=== PATIENT | male | born 1955 | race Two or more races ===

== ENCOUNTER 2023-06-06 16:55 | Inpatient (IN) | payer BC, MEDICARE ==
[~2023-06-06] VITALS: Ht 170.2 cm; Wt 96.0 kg
[2023-06-06] MEDS ORDERED: SODIUM CHLORIDE 0.9% 1,000 ML IV ONE ×2 (17:15→19:30)
[2023-06-06 17:53] LABS: Alanine Aminotransferase 45 U/L (7-40); Albumin 4.3 g/dL (3.2-4.8); Alkaline Phosphatase 143 U/L (46-116); Anion Gap 10 (5-15); Aspartate Aminotransferase 52 U/L (13-40); BUN/Creatinine Ratio 17.2 (10.0-20.0); Bilirubin, Total 0.5 mg/dL (0.2-1.0); Blood Alcohol < 3.0 mg/dL (<10); Blood Urea Nitrogen 51 mg/dL (9-23); Calcium 8.9 mg/dL (8.7-10.4); Carbon Dioxide 23 mmol/L (20-30); Chloride 107 mmol/L (98-107); Glucose 153 mg/dL (74-106); Potassium 4.6 mmol/L (3.5-5.1); Sodium 140 mmol/L (136-145); Total Protein 6.7 g/dL (5.7-8.2)
[2023-06-06 17:59] LABS: Basophils # (auto) 0.1 10 ^3/uL (0-0.2); Basophils % (auto) 0.7 % (0.0-2.0); Eosinophils # (auto) 0.2 10 ^3/uL (0-0.8); Eosinophils % (auto) 1.7 % (0.0-7.0); Hematocrit 47.2 % (41.0-53.0); Hemoglobin 15.5 g/dL (13.5-17.5); Lymphocytes # (auto) 0.9 10 ^3/uL (0.4-5.4); Lymphocytes % (auto) 7.3 % (10.0-50.0); Mean Corpuscular Hemoglobin 29.7 pg (28.0-32.0); Mean Corpuscular Hgb Conc. 32.8 g/dL (32.0-36.0); Mean Corpuscular Volume 90.6 fL (80.0-100.0); Monocytes # (auto) 0.6 10 ^3/uL (0-1.3); Monocytes % (auto) 5.2 % (0.0-12.0); Neutrophils # (auto) 10.3 10 ^3/uL (1.6-8.6); Neutrophils % (auto) 85.1 % (37.0-80.0); Red Blood Cells 5.21 10^6/uL (4.5-5.90); Red Cell Distribution Width 13.9 % (11.8-14.3); White Blood Cell 12.1 10^3/uL (4.4-10.8)
[2023-06-06 18:13] VITALS: PULSE 96; RESP 20; O2SAT 96
[2023-06-06 18:15] LABS: INR 1.04 (0.9-1.15); Partial Thromboplastin Time 27.2 SEC (24.5-34.5); Prothrombin Time 10.9 sec (9.3-11.8)
[2023-06-06 19:19] VITALS: PULSE 87; RESP 96; O2SAT 96
[2023-06-06] MEDS ORDERED: FUROSEMIDE 100 MG/10ML VIAL IV ONE (20:15)
[2023-06-06] MEDS ORDERED: HALOPERIDOL LACTATE 5 MG/ML INJ VIAL IV ONE (21:30)
[2023-06-06 23:50] LABS: Amphetamine Screen, Urine Neg (NEGATIVE); Barbiturate Scree,Urine Neg (NEGATIVE); Benzodiazephine Screen, Urine Neg (NEGATIVE); Cannabinoid Screen, Urine Neg (NEGATIVE); Cocaine Screen, Urine Neg (NEGATIVE); Opiate Scree,Urine Pos (NEGATIVE); Phencyclidine Screen, Urine Neg (NEGATIVE)
[2023-06-06 23:51] LABS: Urine Bacteria NONE SEEN /hpf (None Seen); Urine Blood Negative /uL (Negative); Urine Clarity Clear (Clear); Urine Color Yellow (Yellow); Urine Hyaline Cast MOD /lpf (0 - 2); Urine Protein, UAD TRACE (Negative); Urine Specific Gravity 1.026 (1.001-1.035); Urine WBC 3 /hpf (0 - 3)
[2023-06-07] MEDS ORDERED: NOREPINEPHRINE 8 MG/250ML KIT 250 ML IV SCH (01:15)
[2023-06-07] MEDS ORDERED: ONDANSETRON HCL 4 MG/2 ML VIAL IV PRN (02:30)
[2023-06-07] MEDS ORDERED: NITROGLYCERIN 0.4 MG SL TAB SL PRN (02:30)
[2023-06-07] MEDS ORDERED: MORPHINE SULFATE INJ 2 MG/ml SYRG IV PRN (02:30)
[2023-06-07] MEDS ORDERED: SOD CHL 0.45% 1,000 ML IV SCH (02:30)
[2023-06-07] MEDS ORDERED: ACETAMINOPHEN 325 MG TAB PO PRN (02:30)
[2023-06-07] MEDS ORDERED: DOCUSATE SOD 100 MG CAP PO PRN (02:30)
[2023-06-07] MEDS ORDERED: DEXTROSE (50%) 50ML SYRG IV PRN (03:00)
[2023-06-07] MEDS: SOD CHL 0.45% 1,000 ML IV SCH ×2 (03:10→16:07)
[2023-06-07 05:20] LABS: Basophils # (auto) 0.1 10 ^3/uL (0-0.2); Basophils % (auto) 0.7 % (0.0-2.0); Eosinophils # (auto) 0.5 10 ^3/uL (0-0.8); Eosinophils % (auto) 5.4 % (0.0-7.0); Hemoglobin 14.6 g/dL (13.5-17.5); Lymphocytes # (auto) 1.3 10 ^3/uL (0.4-5.4); Lymphocytes % (auto) 14.8 % (10.0-50.0); Mean Corpuscular Hemoglobin 30.1 pg (28.0-32.0); Mean Corpuscular Hgb Conc. 33.1 g/dL (32.0-36.0); Mean Corpuscular Volume 90.7 fL (80.0-100.0); Monocytes # (auto) 0.7 10 ^3/uL (0-1.3); Monocytes % (auto) 7.6 % (0.0-12.0); Neutrophils # (auto) 6.1 10 ^3/uL (1.6-8.6); Neutrophils % (auto) 71.5 % (37.0-80.0); Nucleated Red Blood Cells % 0.1 %; Red Blood Cells 4.85 10^6/uL (4.5-5.90); Red Cell Distribution Width 14.4 % (11.8-14.3); White Blood Cell 8.5 10^3/uL (4.4-10.8)
[2023-06-07 05:23] LABS: Chloride 111 mmol/L (98-107); Potassium 4.5 mmol/L (3.5-5.1); Sodium 141 mmol/L (136-145)
[2023-06-07 05:24] LABS: Anion Gap 5 (5-15); Carbon Dioxide 25 mmol/L (20-30)
[2023-06-07 05:25] LABS: Calcium 8.5 mg/dL (8.7-10.4)
[2023-06-07 05:29] LABS: BUN/Creatinine Ratio 27.5 (10.0-20.0); Glucose 137 mg/dL (74-106)
[2023-06-07 05:32] LABS: Blood Urea Nitrogen 38 mg/dL (9-23)
[2023-06-07] MEDS: ACCU-CHEK COMFORT CURVE STRIP VI SCH ×4 (05:48→23:26)
[2023-06-07] MEDS: InsuLIN REG 1unit/0.01ml Soln (100units/ml) SC SCH ×4 (05:48→23:30)
[2023-06-07 07:53] VITALS: O2SAT 93
[2023-06-07] MEDS: HEPARIN SODIUM (PORCINE) 5000 UNITS/ML 1ML VIAL SC SCH ×2 (09:46→21:54)
[2023-06-07] MEDS ORDERED: PANTOPRAZOLE 40 MG/10 ML VIAL INJ IV SCH (10:00)
[2023-06-07] MEDS ORDERED: PIPERACILLIN-TAZOB 3.375GM 100 ML IV SCH (12:45)
[2023-06-07] MEDS ORDERED: VANCOMYCIN 1GM/250ML 250 ML IV ONE (13:45)
[2023-06-07] MEDS ORDERED: VANCOMYCIN PER PHARMACY 0 MG IV SCH (13:45)
[2023-06-07] MEDS ORDERED: CEFTRIAXONE SODIUM 2 GM in D5W 5% 100 ML IV ONE (13:45)
[2023-06-07 16:32] LABS: Alanine Aminotransferase 39 U/L (7-40); Albumin 4.3 g/dL (3.2-4.8); Alkaline Phosphatase 117 U/L (46-116); Anion Gap 7 (5-15); Aspartate Aminotransferase 56 U/L (13-40); Bilirubin, Total 0.5 mg/dL (0.2-1.0); Carbon Dioxide 26 mmol/L (20-30); Chloride 107 mmol/L (98-107); Glucose 194 mg/dL (74-106); Sodium 140 mmol/L (136-145)
[2023-06-07 16:33] LABS: Acetaminophen < 2.0 UG/ML (10.0-20.0)
[2023-06-07 16:34] LABS: Salicylate < 3.0 mg/dL (2.8-20.0)
[2023-06-07 16:44] LABS: Blood Urea Nitrogen 24 mg/dL (9-23)
[2023-06-07 18:40] VITALS: PULSE 108; RESP 20; O2SAT 96
[2023-06-07 19:05] VITALS: PULSE 108; RESP 20; O2SAT 96
[2023-06-07 20:00] VITALS: PULSE 108; PULSE 109; RESP 20; O2SAT 96
[2023-06-07] MEDS ORDERED: AML5T PO (20:37)
[2023-06-07] MEDS ORDERED: TIZA4TAB9 PO (20:37)
[2023-06-07] MEDS ORDERED: HYDR-4798 PO (20:37)
[2023-06-07] MEDS ORDERED: ESCI10TA PO (20:37)
[2023-06-07] MEDS ORDERED: MORP30TA PO (20:37)
[2023-06-07] MEDS ORDERED: LISI20TA56 PO (20:37)
[2023-06-07] MEDS ORDERED: HYDR50TA69 PO (20:37)
[2023-06-07] MEDS ORDERED: SIMV40TA18 PO (20:37)
[2023-06-07] MEDS ORDERED: BACL20TA PO (20:37)
[2023-06-07] MEDS ORDERED: PREG25CA GT (20:37)
[2023-06-07 22:00] VITALS: BP 129/77; PULSE 103; RESP 20; TEMP 98.6; O2SAT 96
[2023-06-08] VITALS (7 sets, daily range): BP systolic 107–143; BP diastolic 66–82; PULSE 57–115; RESP 17–19; TEMP 97.3–98.2; O2SAT 92–96
[2023-06-08 04:08] LABS: Gastric Occult Blood Positive (Negative); Gastric Occult Blood pH 1
[2023-06-08] MEDS: ACCU-CHEK COMFORT CURVE STRIP VI SCH ×3 (05:29→18:00)
[2023-06-08] MEDS: SOD CHL 0.45% 1,000 ML IV SCH ×2 (05:31→18:45)
[2023-06-08] MEDS: InsuLIN REG 1unit/0.01ml Soln (100units/ml) SC SCH ×3 (05:34→18:00)
[2023-06-08 06:01] LABS: Basophils # (auto) 0 10 ^3/uL (0-0.2); Basophils % (auto) 0.1 % (0.0-2.0); Eosinophils # (auto) 0 10 ^3/uL (0-0.8); Eosinophils % (auto) 0.1 % (0.0-7.0); Hematocrit 44.6 % (41.0-53.0); Hemoglobin 14.7 g/dL (13.5-17.5); Lymphocytes # (auto) 1.4 10 ^3/uL (0.4-5.4); Lymphocytes % (auto) 15.4 % (10.0-50.0); Mean Corpuscular Hemoglobin 29.6 pg (28.0-32.0); Mean Corpuscular Volume 89.8 fL (80.0-100.0); Monocytes # (auto) 0.6 10 ^3/uL (0-1.3); Monocytes % (auto) 6.7 % (0.0-12.0); Neutrophils # (auto) 7.3 10 ^3/uL (1.6-8.6); Neutrophils % (auto) 77.7 % (37.0-80.0); Red Blood Cells 4.97 10^6/uL (4.5-5.90); White Blood Cell 9.4 10^3/uL (4.4-10.8)
[2023-06-08 06:15] LABS: Alanine Aminotransferase 35 U/L (7-40); Albumin 4.2 g/dL (3.2-4.8); Alkaline Phosphatase 107 U/L (46-116); Anion Gap 7 (5-15); Aspartate Aminotransferase 51 U/L (13-40); BUN/Creatinine Ratio 36.7 (10.0-20.0); Bilirubin, Total 0.6 mg/dL (0.2-1.0); Blood Urea Nitrogen 22 mg/dL (9-23); Carbon Dioxide 29 mmol/L (20-30); Chloride 106 mmol/L (98-107); Glucose 155 mg/dL (74-106); Potassium 3.7 mmol/L (3.5-5.1); Sodium 142 mmol/L (136-145); Total Protein 6.7 g/dL (5.7-8.2)
[2023-06-08] MEDS: HEPARIN SODIUM (PORCINE) 5000 UNITS/ML 1ML VIAL SC SCH ×2 (10:00→21:53)
[2023-06-08] MEDS: cefTRIAXone 1GM/50ML D5W 50 ML IV SCH (10:38)
[2023-06-08] MEDS: VANCOMYCIN 1GM/250ML 250 ML IV SCH ×2 (12:08→21:39)
[2023-06-08] MEDS ORDERED: VANCOMYCIN 1GM/250ML 250 ML IV SCH (14:00)
[2023-06-08] MEDS ORDERED: MORP30TA PO (15:26)
[2023-06-08] MEDS ORDERED: BACL20TA PO (15:26)
[2023-06-08] MEDS ORDERED: ESCI1TAB36 PO (15:26)
[2023-06-08] MEDS ORDERED: HYDR-4072 PO (15:26)
[2023-06-08] MEDS ORDERED: AMLO1TAB22 PO (15:26)
[2023-06-08] MEDS ORDERED: PREG50CA PO (15:26)
[2023-06-08] MEDS ORDERED: SIMV40TA18 PO (15:26)
[2023-06-08] MEDS ORDERED: HYDR50TA69 PO (15:26)
[2023-06-08] MEDS ORDERED: TIZA4CAP PO (15:26)
[2023-06-08] MEDS ORDERED: LISI20TA56 PO (15:26)
[2023-06-08] MEDS ORDERED: MELATONIN 5 MG TAB PO PRN (21:15)
[2023-06-08] MEDS ORDERED: MELATONIN 5 MG TAB ONE (21:24)
[2023-06-08] MEDS: PANTOPRAZOLE 40 MG TAB PO SCH (21:37)
[2023-06-09] VITALS (8 sets, daily range): BP systolic 108–145; BP diastolic 56–80; PULSE 61–101; RESP 16–19; TEMP 97.3–98; O2SAT 95–100
[2023-06-09] MEDS: ACCU-CHEK COMFORT CURVE STRIP VI SCH ×3 (01:03→11:27)
[2023-06-09] MEDS ORDERED: ALBUTEROL SULF 2.5 MG/0.5ML(0.5%) NEB SOLN NEB PRN (03:30)
[2023-06-09] MEDS ORDERED: IPRATROPIUM BROM 0.5 MG/2.5ML INH SOL NEB PRN (03:30)
[2023-06-09] MEDS: InsuLIN REG 1unit/0.01ml Soln (100units/ml) SC SCH ×3 (06:06→11:30)
[2023-06-09 07:11] LABS: Basophils # (auto) 0 10 ^3/uL (0-0.2); Basophils % (auto) 0.4 % (0.0-2.0); Eosinophils # (auto) 0 10 ^3/uL (0-0.8); Eosinophils % (auto) 0.3 % (0.0-7.0); Hemoglobin 15.2 g/dL (13.5-17.5); Lymphocytes # (auto) 1.5 10 ^3/uL (0.4-5.4); Mean Corpuscular Hemoglobin 30.3 pg (28.0-32.0); Mean Corpuscular Hgb Conc. 33.7 g/dL (32.0-36.0); Mean Corpuscular Volume 89.7 fL (80.0-100.0); Monocytes # (auto) 0.6 10 ^3/uL (0-1.3); Monocytes % (auto) 6.4 % (0.0-12.0); Neutrophils # (auto) 7.4 10 ^3/uL (1.6-8.6); Neutrophils % (auto) 76.9 % (37.0-80.0); Red Blood Cells 5.01 10^6/uL (4.5-5.90); Red Cell Distribution Width 13.9 % (11.8-14.3); White Blood Cell 9.6 10^3/uL (4.4-10.8)
[2023-06-09 07:20] LABS: Chloride 104 mmol/L (98-107); Potassium 3.3 mmol/L (3.5-5.1); Sodium 138 mmol/L (136-145)
[2023-06-09 07:21] LABS: Anion Gap 9 (5-15); Carbon Dioxide 25 mmol/L (20-30)
[2023-06-09 07:26] LABS: BUN/Creatinine Ratio 26.8 (10.0-20.0); Blood Urea Nitrogen 19 mg/dL (9-23); Glucose 162 mg/dL (74-106)
[2023-06-09] MEDS: PANTOPRAZOLE 40 MG TAB PO SCH (08:46)
[2023-06-09] MEDS: cefTRIAXone 1GM/50ML D5W 50 ML IV SCH (08:46)
[2023-06-09] MEDS: SOD CHL 0.45% 1,000 ML IV SCH (08:47)
[2023-06-09] MEDS ORDERED: MORP30TA5 PO (08:52)
[2023-06-09] MEDS: HEPARIN SODIUM (PORCINE) 5000 UNITS/ML 1ML VIAL SC SCH (08:53)
[2023-06-09] MEDS: VANCOMYCIN 1GM/250ML 250 ML IV SCH (11:27)
[2023-06-09] MEDS ORDERED: DOXY-448 PO (12:23)
[2023-06-09] MEDS ORDERED: OMEP20TA PO (13:17)
[2023-06-09] MEDS ORDERED: SENN-105 PO (13:18)
[2023-06-09] MEDS ORDERED: VANCOMYCIN 1GM/250ML 250 ML IV SCH (20:00)
== END 2023-06-09 17:09 | disposition home health service (06) | DRG 71 ==
LOC: EDBD 16:55 → EDSEX 16:55 → ER 16:55 → TELE 06-07 02:43 → TELE-WESTW 06-07 18:30
PROVIDERS: ADMIT Nurse Practitioner Family; ATTEND Nurse Practitioner Family
DX: G93.41 Metabolic encephalopathy (principal); I13.0 Hypertensive heart and chronic kidney disease with heart failure and stage 1 through stage 4 chronic kidney disease, or unspecified chronic kidney disease; R78.81 Bacteremia; N17.9 Acute kidney failure, unspecified; I50.9 Heart failure, unspecified; K76.82 Hepatic encephalopathy; D72.829 Elevated white blood cell count, unspecified; E11.22 Type 2 diabetes mellitus with diabetic chronic kidney disease; E66.9 Obesity, unspecified; G89.4 Chronic pain syndrome; I25.10 Atherosclerotic heart disease of native coronary artery without angina pectoris; N18.9 Chronic kidney disease, unspecified; Z88.8 Allergy status to other drugs, medicaments and biological substances; Z68.33 Body mass index [BMI] 33.0-33.9, adult; Z79.891 Long term (current) use of opiate analgesic
CPT/HCPCS: 36415; 70450; 70551; 71045; 72125; 74176; 76775; 80048; 80053; 80202; 80307; 80320; 80329; 81001; 82140; 82271; 82607; 82962; 83605; 83880; 84443; 84484; 85025; 85610; 85730; 87040; 87077; 87186; 93005; 93306; 94640; 96361; 96365; 96366; 96368; 96375; C9113; G0378; J0696; J1815; J2405; J2543; J7060